=== PATIENT | female | born 1945 | race Caucasian/White ===

== ENCOUNTER → 2017-05-28 | Outpatient (CLI) | payer MEDICARE, BC ==
[~2017-05-28] MED LIST: ALBU8.5H12 IH; ASPI81TA94 PO; AZIT-1 PO; CALC-1033 PO; CALC500T42 PO; ESC10 PO; HYDR-2966 PO; IBU600 PO; IBUP800T37 PO; LOR5 PO; OXYC-865 PO; POTA-53 PO; SIMV10TA98 PO; TRAV2.5D4 OP; [UNRECOGNIZED DRUG - CODE] OD
--- NOTE | 2017-05-28 15:18 | RADIOLOGY IMAGING REPORT ---
FACILITY: [facility] [place] PATIENT NAME: Jackie Osman : 1945 MR: [id number] V: [id number] EXAM DATE: ORDERING PHYSICIAN: SHERRELL HEARD TECHNOLOGIST: Location: [facility] [place] Patient: Jackie Osman : 1945 Visit/Account:[id number] Date of Sevice: 05/28/2017 BONE MINERAL DENSITY Additional Pertinent history: Osteoporosis screening COMPARISON STUDIES: 04/20/2012 FINDINGS: LUMBAR SPINE: The bone mineral density (BMD) measured from L1-L4 correlates with a Z-score of 1.9 and a T-score of 1.2 which is normal bone mineral density as defined by the World Health Organization. The correspondi ng risk of fracture in the lumbar spine is not increased compared with a young adult reference popula tion. This value has increased by 10.6% since the prior study. More than 5% change is considered sign ificant. HIP: Bone mineral density (BMD) measured in the left total hip correlates with a Z-score of 1.9 and a T-s core of 1.1 which is normal bone mineral density as defined by the World Health Organization. The cor responding risk of fracture in the hip is not increased compared with a young adult reference populat ion. Total hip value has increased by 2.5% since the prior study. More than 5% change is considered s ignificant. Bone mineral density (BMD) measured in the left femoral neck region measures 1.0 g/cm2. IMPRESSION: 1. Lumbar spine: Normal bone mineral density. Significant increase in bone mineral density. 2. Left hip: Normal bone mineral density. Total hip value has shown no interval change. Left femoral neck: bone mineral density is 1.0 g/cm2 FRAX WHO Fracture Risk Assessment Tool link: http://www.yocasta.ac.uk/FRAX/index.jsp The next DEXA scan of this patient should include the following sites: L1 - L4 and left hip PLEASE NOTE: 1. The World Health Organization defines low BMD as follows: T-score Normal > -1 Osteopenia -1 to -2.5 Osteoporosis < -2.5 without fractures Established osteoporosis < -2.5 with fractures 2. In general, you may wish to consider: Diagnosis Treatment Follow-up DEXA Normal BMD Prevention 2-3 years Osteopenia Prevention/therapy 1-2 years Osteoporosis Therapy Yearly 3. Fracture risk estimated from the T-score is more accurate for vertebral fractures (often spontaneo us) than for hip fractures. Report Dictated By: Evangelista Gresham MD at 05/28/2017 3:07 PM Report E-Signed By: Evangelista Gresham MD at 05/28/2017 3:13 PM SHANITAN:AMICIVN
--- NOTE | 2017-06-02 09:31 | RADIOLOGY IMAGING REPORT ---
[place] [facility] [place] HEMA DAWKINS : [id number] MR: [id number] V: [id number] EXAM DATE: [id number] ORDERING PHYSICIAN: SHERRELL EHARD TECHNOLOGIST: Eneida Morales PROCEDURE:BILATERAL DIGITAL SCREENING MAMMOGRAM WITH CAD AND 3D BREAST TOMOSYNTHESIS. COMPARISON:05/07/16 with priors back to 27/04. INDICATIONS:SCREENING FINDINGS: Breast parenchyma is predominantly fatty. There are no mammographic findings concerning for malignancy. No significant interval change. DIAGNOSTIC CATEGORY 1--NEGATIVE. RECOMMENDATIONS: ROUTINE MAMMOGRAM AND CLINICAL EVALUATION. IMPRESSION: Bi-RADS 1: Negative. RECOMMENDATION: Followup screening mammogram in one year. Dictated by: Gt Thomas on 05/31/2017 at 9:36 Transcribed by: CHADD on 05/31/2017 at 22:45 Approved by: Greta Buckner M.D. on 06/02/2017 at 8:52 [facility]
== END ==
LOC: MAMO 05-11 01:27
PROVIDERS: ATTEND Obstetrics & Gynecology
DX: Z13.820 Encounter for screening for osteoporosis (principal); Z12.31 Encounter for screening mammogram for malignant neoplasm of breast; Z78.0 Asymptomatic menopausal state
CPT/HCPCS: 77063; 77067; 77080

== ENCOUNTER → 2018-07-12 | Outpatient (CLI) | payer MEDICARE, BC ==
[~2018-07-12] MED LIST changes: +LOSA50TA80 PO; +SIMV-49 PO
--- NOTE | 2018-07-13 13:39 | RADIOLOGY IMAGING REPORT ---
FACILITY: [facility] PATIENT NAME: HEMA DAWKINS : [id number] MR: [id number] V: [id number] EXAM DATE: [id number] ORDERING PHYSICIAN: GEOVANNA WOOD TECHNOLOGIST: Aubrie Mcclain PROCEDURE:BILATERAL DIGITAL SCREENING MAMMOGRAM WITH CAD ASSISTED INTERPRETATION & 3D TOMOSYNTHESIS COMPARISON:Prior mammograms 05/28/17, 05/07/16, 05/06/15, 04/30/14, 04/28/13, 04/27/12. INDICATIONS:SCREENING FINDINGS: There are scattered areas of fibroglandular density throughout the breasts. The parenchymal pattern has remained stable allowing for difference in mammographic technique & patient positioning. DIAGNOSTIC CATEGORY 1--NEGATIVE. RECOMMENDATIONS: ROUTINE MAMMOGRAM AND CLINICAL EVALUATION. IMPRESSION: BIRADS 1: Negative. No significant abnormality is seen. Dictated by: Greta Buckner M.D. on 07/12/2018 at 16:58 Transcribed by: JAKE on 07/13/2018 at 8:44 Approved by: Greta Buckner M.D. on 07/13/2018 at 13:38 [facility]
== END ==
LOC: MAMO 02:19
PROVIDERS: ATTEND Family Medicine
DX: Z12.31 Encounter for screening mammogram for malignant neoplasm of breast (principal)
CPT/HCPCS: 77063; 77067